=== PATIENT | male | born 1990 | race African-American/Black ===

== ENCOUNTER 2018-01-22 16:59 | Emergency (ER) | payer SELFPAY ==
[~2018-01-22] VITALS: Ht 165.1 cm; Wt 59.0 kg
[2018-01-22] MEDS ORDERED: Methocarbamol 500mg tab ORAL ONE (17:30)
[2018-01-22] MEDS ORDERED: Ketorolac 30mg Inj IM ONE (17:30)
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
[2018-01-22] MEDS ORDERED: ROBAXIN500 MG PO (18:01)
[2018-01-22] MEDS ORDERED: TYLENOL EXTRA500 MG ORAL (18:01)
[2018-01-22] MEDS ORDERED: LIDOCAINE700 M1 TP (18:01)
[2018-01-22 18:14] VITALS: BP 120/71
--- NOTE | 2018-01-23 13:48 | Diagnostic Imaging Report ---
Indication: Neck Pain Findings: 3 views of the cervical spine were obtained. There is no acute fracture identified. Alignment is normal. The open-mouth odontoid view shows an intact dens and good alignment of the lateral masses with respect to the body of C2. There is no soft tissue swelling. Impression: Negative cervical spine examination.
== END 2018-01-22 18:19 | disposition home or self-care (01) ==
LOC: EMR 17:35
DX: S13.4XXA Sprain of ligaments of cervical spine, initial encounter (principal); V43.62XA Car passenger injured in collision with other type car in traffic accident, initial encounter; Y92.414 Local residential or business street as the place of occurrence of the external cause
CPT/HCPCS: 72040; 96372; 99283; J1885

== ENCOUNTER 2018-06-04 01:48 | Emergency (ER) | payer MEDICAID ==
[~2018-06-04] VITALS: Ht 165.1 cm; Wt 59.0 kg
[~2018-06-04 01:48] MED LIST: LIDOCAINE700 M1 TP; ROBAXIN500 MG PO; TYLENOL EXTRA500 MG ORAL
[2018-06-04] MEDS ORDERED: NKM (02:09)
[2018-06-04 02:19] VITALS: BP 122/75
[2018-06-04] MEDS ORDERED: IBUPROFEN600 MG ORAL (02:24)
[2018-06-04] MEDS ORDERED: AUGMENTIN 875-1 EAC1 ORAL (02:24)
--- NOTE | 2018-06-04 02:29 | Emergency Room Report ---
History of Present Illness General Chief Complaint: Skin Rash/Abscess Source: Patient Present Illness HPI Patient is a 27-year-old male presents after increased sharp pain to the upper lip. Patient reports of increased pain for the past 3 days. He states this had a gradual onset. He reports having a small lesion to his face which had increased in size and become increasingly swollen. He denies any prior history of abscesses. He denies any allergies or history of immunocompromise. He reports of increased facial pain. He denies any other locations of discomfort or swelling. Allergies: Coded Allergies: No Known Allergies (Unverified , 01/22/18) Patient History Past Medical History: see triage record Reviewed Nursing Documentation: PMH: Agreed; PSxH: Agreed Nursing Documentation-PMH Past Medical History: No Stated History Review of Systems All Other Systems: negative except mentioned in HPI Physical Exam Vital Signs Date Time Temp Pulse Resp B/P (MAP) Pulse Ox O2 Delivery O2 Flow Rate FiO2 06/04/18 02:07 98.8 94 16 122/75 97 Room Air General Appearance: well appearing, no apparent distress, alert, GCS 15 Head: normocephalic, atraumatic ENT: hearing grossly normal, normal voice, other - lip swelling upper lip Neck: full range of motion, supple Respiratory: lungs clear, no respiratory distress, speaking full sentences Cardiovascular #1: normal inspection Gastrointestinal: normal inspection Musculoskeletal: normal inspection Neurologic: normal inspection, alert, oriented x3, health informatics instructor III-XII nml as tested, normal gait Psychiatric: normal inspection, mood/affect normal Skin: other - swelling to upper lip, no fluctance Medical Decision Making Diagnostic Impression: Primary Impression: Facial infection ER Course Patient presented for swelling to his upper lip. Differential diagnosis include was not limited to lip cellulitis, allergic reaction, angioedema. His the patient is advised to follow up with primary care doctor in 1-2 days. Patient is given Augmentin and ibuprofen in the emergency department. Patient was noted to have a benign exam and does not appear to require any laboratory testing at this time. Bedside ultrasound showed no evident abscess. Patient appears stable for close outpatient follow-up. He is advised to have area rechecked in 2 days. Patient is advised to return if any worsening condition or if any changes in status that are concerning. This report is dictated with Instant AV liquor runner software which may occasionally lead to discrepancies related to use of this software. Last Vital Signs Date Time Temp Pulse Resp B/P (MAP) Pulse Ox O2 Delivery O2 Flow Rate FiO2 06/04/18 02:07 98.8 94 16 122/75 97 Room Air Status: improved Disposition: HOME, SELF-CARE Condition: Stable Scripts Amoxicillin/Potassium Clav 875-125* (AUGMENTIN 875-125 TABLET*) 1 Each Tablet 1 TAB ORAL TWICE A DAY, #14 TAB Prov: Dallin Marion MD 06/04/18 Ibuprofen* (MOTRIN*) 600 Mg Tablet 600 MG ORAL Q8H PRN for For Pain, #30 TAB 0 Refills Prov: Dallin Marion MD 06/04/18 Patient Instructions: Cellulitis Dallin Marion MD Jun 04, 2018 02:29
[2018-06-04] MEDS ORDERED: Augmentin 875mg Tab ORAL ONE (02:30)
[2018-06-04 02:52] VITALS: BP 122/75
== END 2018-06-04 02:53 | disposition home or self-care (01) ==
LOC: EMR 02:00
DX: L08.9 Local infection of the skin and subcutaneous tissue, unspecified (principal)
CPT/HCPCS: 99282

== ENCOUNTER 2019-01-25 19:39 | Emergency (ER) | payer MEDICAID ==
[~2019-01-25] VITALS: Ht 165.1 cm; Wt 61.2 kg
[~2019-01-25 19:39] MED LIST changes: +AUGMENTIN 875-1 EAC1 ORAL; +IBUPROFEN600 MG ORAL; +NKM
[2019-01-25 19:54] VITALS: BP 118/78
[2019-01-25] MEDS ORDERED: Ketorolac 60mg Inj IM ONE (20:15)
[2019-01-25] MEDS ORDERED: TAMIFLU75 MG ORAL (20:31)
[2019-01-25] MEDS ORDERED: ZOFRAN4 M1 ORAL (20:31)
[2019-01-25 20:37] VITALS: BP 118/78
--- NOTE | 2019-01-25 21:18 | Emergency Room Report ---
History of Present Illness General Chief Complaint: Flu Like Symptoms Source: Patient Present Illness HPI Patient presents with complaints of 2 days of mild cough body ache General weakness patient has now developed Diarrhea as well denies any blood in stool Patient also had a mild headache denies any neck pain or photophobia denies any vomiting Denies any sore throat Denies any rash Patient does report sick contact with some similar findings Allergies: Coded Allergies: No Known Allergies (Unverified , 01/22/18) Patient History Past Medical History: see triage record Reviewed Nursing Documentation: PMH: Agreed; PSxH: Agreed Nursing Documentation-PMH Past Medical History: No Stated History Review of Systems All Other Systems: negative except mentioned in HPI Physical Exam Vital Signs Date Time Temp Pulse Resp B/P (MAP) Pulse Ox O2 Delivery O2 Flow Rate FiO2 01/25/19 19:42 98.4 93 16 118/78 (91) 98 Room Air Sp02 EP Interpretation: reviewed, normal General Appearance: well appearing, no apparent distress Head: normocephalic, atraumatic Eyes: bilateral eye PERRL, bilateral eye EOMI ENT: hearing grossly normal, normal pharynx, TMs + canals normal, uvula midline Neck: full range of motion, supple, no meningismus, no bony tend Respiratory: lungs clear, normal breath sounds, no rhonchi, no respiratory distress, no retraction, no accessory muscle use Cardiovascular #1: normal peripheral pulses, regular rate, rhythm, no edema, no gallop, no JVD, no murmur Gastrointestinal: normal bowel sounds, non tender, soft, no mass, no organomegaly, non-distended, no guarding, no hernia, no pulsatile mass, no rebound Genitourinary: no CVA tenderness Musculoskeletal: normal inspection Neurologic: motor strength/tone normal, supervisor particleboard III-XII nml as tested, oriented x3 , sensory intact, responsive Psychiatric: mood/affect normal Skin: no rash Lymphatic: normal inspection, no adenopathy Medical Decision Making Diagnostic Impression: Primary Impression: Influenza-like symptoms ER Course Patient's history and exam appears to be consistent with viral syndrome and flulike symptoms Patient does not appear septic or toxic remains hemodynamically stable At this time is also having diarrhea Patient treated symptomatically and will have initial conservative outpatient trial Last Vital Signs Date Time Temp Pulse Resp B/P (MAP) Pulse Ox O2 Delivery O2 Flow Rate FiO2 01/25/19 20:37 98.4 91 16 118/78 98 Room Air Status: improved Disposition: HOME, SELF-CARE Condition: Improved Scripts Ondansetron (Zofran) 4 Mg Tablet 4 MG ORAL Q6H PRN for Nausea & Vomiting, #12 TAB Prov: Ana Williamson DO 01/25/19 Oseltamivir Phosphate (Tamiflu) 75 Mg Capsule 75 MG ORAL TWICE A DAY for 5 Days, CAP Prov: Ana Williamson DO 01/25/19 Referrals: NON PHYSICIAN (PCP) [facility] Alyse Melendez [facility] Patient Instructions: Influenza, Adult, [id number], Diarrhea, Adult, Easy-to- Read Additional Instructions: Patient is provided with the discharge instructions notified to follow up with primary doctor in the next 2-3 days otherwise return to the er with any worsening symptoms. Please note that this report is being documented using DRAGON technology. This can lead to erroneous entry secondary to incorrect interpretation by the dictating instrument. Ana Williamson DO Jan 25, 2019 21:18
== END 2019-01-25 20:37 | disposition home or self-care (01) ==
LOC: EMR 20:37
DX: J11.1 Influenza due to unidentified influenza virus with other respiratory manifestations (principal)
CPT/HCPCS: 96372; Z7502; 99283